=== PATIENT | female | born 1990 | race Two or more races ===

== ENCOUNTER 2020-07-23 23:36 | Emergency (ER) | payer MEDICAID, OTHER ==
[~2020-07-23] VITALS: Ht 152.4 cm; Wt 51.3 kg
[~2020-07-23 23:36] MED LIST: MEDR150I
[2020-07-24] MEDS ORDERED: cefTRIAXone SOD 1,000 MG VL IM ONE (01:00)
[2020-07-24] MEDS ORDERED: methylPREDNISolone SOD SUCC 125 MG/2 ML VL IM ONE (01:45)
[2020-07-24] MEDS ORDERED: ACETAMINOPHEN 325 MG TAB PO ONE (01:45)
[2020-07-24 01:55] VITALS: BP 130/86
== END 2020-07-24 02:03 | disposition home or self-care (01) ==
LOC: ER 23:36
DX: L03.116 Cellulitis of left lower limb (principal); F41.9 Anxiety disorder, unspecified; J02.9 Acute pharyngitis, unspecified; F15.10 Other stimulant abuse, uncomplicated
CPT/HCPCS: 93971; 96372; 99284; J0696